=== PATIENT | male | born 1945 | race Caucasian/White ===

== ENCOUNTER 2019-08-18 11:11 | Observation (INO) | payer MEDICARE, OTHER, SELFPAY ==
[2019-08-18] VITALS (9 sets, daily range): BP systolic 115–159; BP diastolic 54–85; PULSE 40–111; RESP 13–16; TEMP 35.9–36.7; O2SAT 93–98; BMI 20.7
--- NOTE | 2019-08-18 11:34 | XRR_ITS ---
PROCEDURE INFORMATION: Exam: XR Chest, 1 View Exam date and time: 08/18/2019 11:47 AM Age: 74 years old Clinical indication: Chest pain; Additional info: Bradycardia TECHNIQUE: Imaging protocol: XR of the chest Views: 1 view. COMPARISON: No relevant prior studies available. FINDINGS: Lungs: Unremarkable. No consolidation. Pleural space: Unremarkable. No pleural effusion. No pneumothorax. Heart/Mediastinum: Unremarkable. No cardiomegaly. Bones/joints: Unremarkable. XR/XR chest 1V portable [id number] IMPRESSION: No acute findings.
--- NOTE | 2019-08-18 11:34 | CT_ITS ---
WS: [id number] CT CHEST ANGIOGRAPHY WITH REFORMATS HISTORY: bradycardia TECHNIQUE: Contiguous axial images are obtained through the chest during arterial injection of intrav enous contrast. Images are reconstructed to evaluate the pulmonary arteries. MIP imaging also reviewe d. All CT scans at [facility] use at least one of these dose optimization techniques: aut omated exposure control; mA and/or kV adjustment per patient size (includes targeted exams where dose is matched to clinical indication); or iterative reconstruction. CONTRAST: Omnipaque 300; 95 mL IV. DLP: 462.55 mGy.cm COMPARISON: None available. Excellent opacification of the pulmonary arteries. No pulmonary embolism. Pulmonary artery size is no rmal. Mild atherosclerosis of aorta. There is mild ectasia of aorta. No pericardial or pleural effusi on. Severe emphysema. There are a few scattered granulomata. No pneumonia or mass. Indeterminate medi astinal and hilar lymph nodes. Could very well be reactive. Lymph nodes measure up to 10 mm at the hi lar regions. Small hiatal hernia. Visualized soft tissues of the upper abdomen are negative without enhancement. Moderate increase in thoracic kyphosis. RIGHT convex curvature of the thoracic spine. Prior rotator c uff repair on the LEFT. No osteoblastic or osteolytic bone disease. CT/CT angio chest PE protcl [id number] IMPRESSION: 1. No pulmonary embolism. 2. Severe chronic emphysema with no pneumonia. 3. Indeterminate mediastinal and hilar lymph nodes.
--- NOTE | 2019-08-18 11:35 | ECG_ITS ---
Measurements Intervals [place] Rate: 39 P: 76 NE: 229 QRS: 64 QRSD: 129 T: 69 QT: 462 QTc: 375 SINUS BRADYCARDIA WITH FIRST DEGREE AV BLOCK MODERATE INTRAVENTRICULAR CONDUCTION DELAY [110+ ms QRS DURATION] Compared to ECG 06/04/2018 11:29:40 No significant changes Electronically Signed On 08-18-2019 21:58:19 CDT by Elaina Tafoya M.D. [id number]
--- NOTE | 2019-08-18 11:47 | ED_ITS ---
HPI - Dizziness General: Chief Complaint: Dizziness Stated Complaint: low heart rate/sent by doc Time Seen by Provider: 08/18/19 11:26 History of Present Illness: HPI Narrative: Patient states that yesterday while using the weed eater he became lightheaded and dizzy and had one episode of emesis. Patient was in August using a weed eater today and again became very lightheaded and dizzy. Was no vomiting today. Patient went to his PCPs office and was sent to the ER when it was discovered that he has a first degree AV block. Patient's EKG doesn't fact reveal a first degree A-V block but I do not believe this is the etiology of the patient's bradycardia. MD elicited complaint: dizziness Onset (ago): day(s) Timing: sudden onset and constant Severity: severe Description: lightheadedness, difficulty walking and near-syncope Context: exertion History of similar symptoms: No Exacerbating factors: movement/ambulation Relieving factors: medication Associated symptoms: Reports no associated symptoms and palpitations Associated neuro symptoms: Reports no associated symptoms Review of Systems General: Reports: 10 or more systems reviewed and unremarkable except in HPI and below Card: Reports: palpitations, lightheadedness and dyspnea on exertion Neuro: Reports: dizziness PFS ED PFSH: Medical History (Updated 08/18/19 @ 15:16 by Eliseo Grewal MD) COPD (chronic obstructive pulmonary disease) Tobacco dependency Surgical History H/O hernia repair H/O shoulder surgery History of appendectomy Family History (Updated 08/18/19 @ 15:10 by Eliseo Grewal MD) Other Cancer Social History Smoking and tobacco status: current every day smoker Physical Exam HENMT: COMMON NORMALS: normocephalic HEAD & SCALP: normocephalic Neck/C-Spine: COMMON NORMALS: full ROM, no meningeal signs and no JVD Resp: COMMON NORMALS: normal respiratory effort, No retractions, No use of accessory muscles and clear to auscultation bilaterally AUSCULTATION: clear to auscultation bilaterally Cardio: COMMON NORMALS: no JVD and regular rhythm RATE: bradycardic (1st degree av block with marked bradycardia) RHYTHM: regular rhythm GI: COMMON NORMALS: Normal to inspection, nondistended, normoactive bowel sounds present Extremity: COMMON NORMALS: normal to inspection Neuro: MENINGEAL SIGNS: Yes no meningeal signs Course Vital Signs: Vital signs: Vital Signs Temperature 97.5 F L 08/18/19 11:18 Pulse Rate 45 L 08/18/19 11:18 Respiratory Rate 16 08/18/19 11:18 Blood Pressure 141/70 08/18/19 11:18 Pulse Oximetry 97 08/18/19 11:18 MDM - Dizziness Lab Data: Labs: Lab Results 08/18/19 08/18/19 08/18/19 Range/Units 11:59 11:59 11:59 WBC 6.5 (4.0-10.0) 10^3/ uL RBC 4.65 (4.1-5.3) 10^6/u L Hgb 14.2 (11.7-16.6) g/dL Hct 44.5 (42.0-52.0) % MCV 95.7 H (80-94) fL MCH 30.5 (28.0-34.0) pg MCHC 31.9 (30.0-36.0) g/dL RDW 13.2 (12.1-15.1) % Plt Count 229 (130-400) 10^3/c mm MPV 8.8 (7.4-10.4) fL Neut % (Auto) 56.7 % Lymph % (Auto) 30.7 % [place] % (Auto) 7.9 % Eos % (Auto) 3.6 % Baso % (Auto) 0.9 % Neut # (Auto) 3.7 (1.8-7.7) 10^3/u L Lymph # (Auto) 2.0 (0.8-4.8) 10^3/u L [place] # (Auto) 0.5 (0.2-0.9) 10^3/u L Eos # (Auto) 0.2 (0.0-0.8) 10^3/u L Baso # (Auto) 0.1 (0.0-0.1) 10^3/u L Nucleated RBC % (a uto) 0 % Nucleated RBCs # 0.0 /100WBC PT 13.10 (10.5-13.3) SECO NDS INR 0.97 (0.8-1.2) Sodium 140 (136-145) mmol/L Potassium 4.1 (3.5-5.1) mmol/L Chloride 104 (98-107) mmol/L Carbon Dioxide 28 (22-29) mmol/L Anion Gap 12.1 (5-19) BUN 8 (8-23) mg/dL Creatinine 0.9 (0.7-1.2) mg/dL Glucose 98 (65-115) mg/dL Calculated Osmolal ity 286 (285-295) mOsm/k g Lactate (0.5-2.2) mmol/L Calcium 9.0 (8.5-10.5) mg/dL Phosphorus 3.3 (2.5-4.5) mg/dL Magnesium 2.2 (1.7-2.3) mg/dL Total Bilirubin 0.2 (0.15-1.2) mg/dL AST 14 (0-40) U/L ALT 9 (0-41) U/L Alkaline Phosphata se 62 (40-130) IU/L Troponin T Baselin e (0-15) ng/mL Troponin T 120 Min [place] (0-15) ng/mL Delta Troponin T (0-10) ABS# NT-Pro-B Natriuret Pep 63 (0-125) pg/mL Total Protein 6.5 L (6.6-8.7) g/dL Albumin 4.0 (3.5-5.2) g/dL Globulin 2.5 (1.3-4.6) g/dL TSH 2.37 (0.27-4.20) uIU/ mL 08/18/19 08/18/19 08/18/19 Range/Units 11:59 11:59 13:58 WBC (4.0-10.0) 10^3/ uL RBC (4.1-5.3) 10^6/u L Hgb (11.7-16.6) g/dL Hct (42.0-52.0) % MCV (80-94) fL MCH (28.0-34.0) pg MCHC (30.0-36.0) g/dL RDW (12.1-15.1) % Plt Count (130-400) 10^3/c mm MPV (7.4-10.4) fL Neut % (Auto) % Lymph % (Auto) % [place] % (Auto) % Eos % (Auto) % Baso % (Auto) % Neut # (Auto) (1.8-7.7) 10^3/u L Lymph # (Auto) (0.8-4.8) 10^3/u L [place] # (Auto) (0.2-0.9) 10^3/u L Eos # (Auto) (0.0-0.8) 10^3/u L Baso # (Auto) (0.0-0.1) 10^3/u L Nucleated RBC % (a uto) % Nucleated RBCs # /100WBC PT (10.5-13.3) SECO NDS INR (0.8-1.2) Sodium (136-145) mmol/L Potassium (3.5-5.1) mmol/L Chloride (98-107) mmol/L Carbon Dioxide (22-29) mmol/L Anion Gap (5-19) BUN (8-23) mg/dL Creatinine (0.7-1.2) mg/dL Glucose (65-115) mg/dL Calculated Osmolal ity (285-295) mOsm/k g Lactate 0.9 (0.5-2.2) mmol/L Calcium (8.5-10.5) mg/dL Phosphorus (2.5-4.5) mg/dL Magnesium (1.7-2.3) mg/dL Total Bilirubin (0.15-1.2) mg/dL AST (0-40) U/L ALT (0-41) U/L Alkaline Phosphata se (40-130) IU/L Troponin T Baselin e 12 (0-15) ng/mL Troponin T 120 Min [place] 11.32 (0-15) ng/mL Delta Troponin T -0.68 L (0-10) ABS# NT-Pro-B Natriuret Pep (0-125) pg/mL Total Protein (6.6-8.7) g/dL Albumin (3.5-5.2) g/dL Globulin (1.3-4.6) g/dL TSH (0.27-4.20) uIU/ mL Discharge Plan Discharge Patient Disposition: Admitted As Inpatient Clinical Impression: Vertigo, Bradycardia Condition: Fair Referrals: Rich Lomeli [Primary Care Provider] - Coding Level of Care Code ED [employer] for Chg Fwd Exam Detailed
[2019-08-18 12:06] LABS: Basophils # 0.1 10^3/uL (0.0-0.1); Basophils % 0.9 %; Eosinophils # 0.2 10^3/uL (0.0-0.8); Eosinophils % 3.6 %; Hematocrit 44.5 % (42.0-52.0); Hemoglobin 14.2 g/dL (11.7-16.6); Lymphocytes % 30.7 %; Mean Corpuscular HGB Conc 31.9 g/dL (30.0-36.0); Mean Corpuscular Hemoglobin 30.5 pg (28.0-34.0); Mean Corpuscular Volume 95.7 fL (80-94); Mean Platelet Volume 8.8 fL (7.4-10.4); Monocytes # 0.5 10^3/uL (0.2-0.9); Monocytes % 7.9 %; Neutrophils # 3.7 10^3/uL (1.8-7.7); Neutrophils % 56.7 %; Nucleated Red Blood Cells % 0 %; Platelet Count 229 10^3/cmm (130-400); Red Blood Count 4.65 10^6/uL (4.1-5.3); Red Cell Distribution Width 13.2 % (12.1-15.1); White Blood Count 6.5 10^3/uL (4.0-10.0)
[2019-08-18 12:15] LABS: INR 0.97 (0.8-1.2)
[2019-08-18 12:30] LABS: Lactate (Lactic Acid level) 0.9 mmol/L (0.5-2.2)
[2019-08-18 12:33] LABS: Troponin(5th) Baseline 12 ng/mL (0-15)
[2019-08-18 12:44] LABS: Alanine Aminotransferase 9 U/L (0-41); Alkaline Phosphatase 62 IU/L (40-130); Anion Gap 12.1 (5-19); Aspartate Amino Transferase 14 U/L (0-40); Blood Urea Nitrogen 8 mg/dL (8-23); Carbon Dioxide 28 mmol/L (22-29); Chloride 104 mmol/L (98-107); Globulin 2.5 g/dL (1.3-4.6); Glucose 98 mg/dL (65-115); Magnesium 2.2 mg/dL (1.7-2.3); NT Pro B Type Natriuretic Pept 63 pg/mL (0-125); Osmolality Calculated 286 mOsm/kg (285-295); Phosphorus 3.3 mg/dL (2.5-4.5); Potassium 4.1 mmol/L (3.5-5.1); Sodium 140 mmol/L (136-145); Thyroid Stimulating Hormone 2.37 uIU/mL (0.27-4.20); Total Bilirubin 0.2 mg/dL (0.15-1.2); Total Protein 6.5 g/dL (6.6-8.7)
[2019-08-18] MEDS: iohexol 350 mg/mL 100 mL Btl IV (12:50)
--- NOTE | 2019-08-18 13:35 | ECG_ITS ---
Measurements Intervals [place] Rate: 41 P: 74 RI: 229 QRS: 55 QRSD: 110 T: 60 QT: 446 QTc: 370 SINUS BRADYCARDIA WITH FIRST DEGREE AV BLOCK Compared to ECG 06/04/2018 11:29:40 Intraventricular conduction delay no longer present Electronically Signed On 08-18-2019 22:11:31 CDT by Elaina Tafoya M.D. [id number]
[2019-08-18 14:20] LABS: Troponin 5 2HR 11.32 ng/mL (0-15)
[2019-08-18 14:22] LABS: Troponin 5 2HR Delta -0.68 ABS# (0-10)
--- NOTE | 2019-08-18 15:07 | CT_ITS ---
WS: [id number] CT HEAD NONCONTRAST HISTORY: vertigo TECHNIQUE: Contiguous axial imaging performed through the brain in 2.5 mm imaging. Bone and soft tiss ue windows. Sagittal and coronal reformats reviewed. All CT scans at [facility] use at le ast one of these dose optimization techniques: automated exposure control; mA and/or kV adjustment pe r patient size (includes targeted exams where dose is matched to clinical indication); or iterative r econstruction. DLP: 793.24 mGy.cm COMPARISON: None available. Increased density layering along the tentorium and within the dural venous sinuses is from a recent C T examination. Therefore cannot exclude subdural blood. There is no evidence for significant intracra nial hemorrhage. No mass effect. Mild chronic microvascular ischemic disease. Mild atrophy. Ventricles: Normal size with no hydrocephalus. Moderate atherosclerosis of the intracranial carotid arteries. Paranasal sinuses: Mild mucoperiosteal thickening in the ethmoid air cells. Mastoid air cells: Well pneumatized. Calvarium and scalp: Skull is intact with no soft tissue edema or swelling. CT/CT head wo con* [id number] IMPRESSION: 1. Contrast enhancement along the tentorium and dural venous sinuses from rece nt CT angiogram. Therefore cannot exclude small subarachnoid hemorrhages. 2. Mild atrophy with no large intracranial hemorrhage. No mass effect.
--- NOTE | 2019-08-18 15:07 | P.HP_ITS ---
Providers/Chief Complaint Primary Care Provider: Rich Lomeli Chief Complaint: low heart rate/sent by doc History of Present Illness Rich Quinonez is a 74 year old male who presents to the emergency department with complaints of some dizziness. He reports symptoms started when he was weed eating yesterday, around 9 AM. He started feeling weak, dizzy. He reports that the dizziness has persisted intermittently. He states that when he moves his head quickly, he feels as if he is falling, and gets dizzy. He does not really think that the mark move. He denies any headache. He reports he had some nausea and one episode of emesis yesterday, but denies any today. He reports no history of head injury. He has had no fever, or neck pain. He reports he came in today not because he was worse but because his wanted him to. He was sent from urgent care here secondary to bradycardia. Review of Systems General: Reports: 10 or more systems reviewed and unremarkable except in HPI and below Const: Denies: fever(s) Eyes: Denies: change in vision ENMT: Denies: throat pain Card: Denies: chest pain Resp: Denies: dyspnea GI: Reports: nausea and vomiting; Denies: abdominal pain : Denies: flank pain or difficulty urinating Musc: Denies: neck pain Skin/Breast: Denies: rash Neuro: Reports: dizziness and vertigo; Denies: headache(s) Psych: Denies: anxiety or depression Endo: Denies: polyuria Saleem/Lymph: Denies: easy bruising All/Imm: Denies: urticaria Medications/Allergies Home Medications Medication Instructions Recorded Confirmed Last Taken Type krill oil 1 cap PO DAILY 08/18/19 08/18/19 08/15/19 History multivitamin [Multiple Vitamins] 1 tab PO DAILY 08/18/19 08/18/19 08/15/19 History Allergies Allergy/AdvReac Type Severity Reaction Status Date / Time No Known Allergies Allergy Verified 08/18/19 09:44 PFSH Acute PFSH: Medical History (Updated 08/18/19 @ 15:16 by Eliseo Grewal MD) COPD (chronic obstructive pulmonary disease) Tobacco dependency Surgical History H/O hernia repair H/O shoulder surgery History of appendectomy Family History (Updated 08/18/19 @ 15:10 by Eliseo Grewal MD) Other Cancer Social History Smoking and tobacco status: current every day smoker Vitals/I&O/Wt Last Vital Signs Temp 97.5 F L 08/18/19 11:18 Pulse 45 L 08/18/19 11:18 Resp 16 08/18/19 11:18 BP 141/70 08/18/19 11:18 Pulse Ox 97 08/18/19 11:18 Weight last 48 hrs Weight 59.874 kg Physical Exam Narrative: EXAM NARRATIVE: General exam is a white male, no apparent distress. HEENT: Pupils equally round. Oropharynx is clear. TMs normal bilaterally. Small amount of cerumen bilateral left greater than right. Oropharynx clear. Neck is supple no lymphadenopathy or thyromegaly Cardiovascular regular rate and rhythm without murmur, no S3 or S4 Lungs clear no wheezing or crackles Back kyphoscoliosis noted Abdomen is soft nontender with positive bowel sounds. No obvious organomegaly was deferred Extremities no cyanosis clubbing or edema, cap refill brisk. Skin no rash Neuro no obvious focal deficits, cerebellar function intact. Gait was not tested. I could not generate the patient's dizziness with position changes during my exam, nor was he having any dizziness at all. Data : 08/18/19 11:59 08/18/19 11:59 Other data: EKG demonstrates sinus bradycardia, normal axis, heart rate of 39 on initial EKG, 41 on follow-up. TX interval is 229 indicating first-degree AV block Troponin essentially normal. LFTs normal. TSH normal. CTA of chest demonstrated COPD, indeterminate lymph nodes, no pulmonary embolism. A&P Assessment and plan (1) Bradycardia: Significant bradycardia on arrival, with complaints of dizziness. However on further history dizziness seems to occur when he turns his head quickly, changes positions quickly. He has a first-degree AV block. It is likely, that his bradycardia which appears chronic according to clinic records with previous heart rates in the 50s may be worsened by labyrinthitis. However, this warrants close observation overnight for telemetry and further work-up. At this point I doubt a pacemaker will be warranted. Orthostatic blood pressures will also be obtained. Continue troponin series that has been obtained TSH was checked and normal Will initiate aspirin. Status: Acute (2) Vertigo: Likely secondary to labyrinthitis, or benign positional vertigo. No significant headache. Symptoms of nausea and vomiting were yesterday but no recurrence today and no dizziness with the exception of that generated by fast head movements according to the patient. Secondary to dizziness will check CT of head noncontrast. Close monitoring with neurologic checks. Check orthostatic blood pressures twice daily Hydration Zofran if nausea occurs. Status: Acute Additional A&P Information COPD. No evidence of exacerbation. He reports he uses no inhalers at home. Will observe. Tobacco dependency. Discussed abstaining from tobacco. Full code Given his risk profile he only needs SCDs for DVT prophylaxis. Attestations Medical Necessity Statement*: Will need less than 2 midnight stay for evaluation and treatment of bradycardia, dizziness. Time Spent in Patient Care: Greater than 35 minutes Coding Level of Care Code Acute [employer] Curator for Bárbara Levy Diagnoses Bradycardia R00.1 Vertigo R42
--- NOTE | 2019-08-18 16:22 | USCV_ITS ---
Rich Quinonez Age: 74 Gender: M : 1945 Exam Date: 08/18/2019 16:57 Ordering Phys: Eliseo Grewal MD Technologist: Shwetha Pierce Exam Location: [facility] [place] Indication: Bradycardia BP: / HR: 39 Rhythm: Sinus Technical Quality: Adequate MEASUREMENTS (Male / Female) Normal Values 2D ECHO LV Diastolic Diameter PLAX 3.0 cm 4.2 - 5.9 / 3.9 - 5.3 cm LV Systolic Diameter PLAX 2.2 cm LV Chamber Size 3.2 cm IVS Diastolic Thickness 1.5 cm 0.6 - 1.0 / 0.6 - 0.9 cm IVS Systolic Thickness 1.4 cm LVPW Diastolic Thickness 1.6 cm 0.6 - 1.0 / 0.6 - 0.9 cm LVPW Systolic Thickness 2.3 cm RV Chamber Size 3.3 cm LVOT Diameter 2.0 cm LV Ejection Fraction 2D Teich 54.1 % LV Ejection Fraction MOD 2C 62.7 % LV Ejection Fraction 2C AL 62.0 % LA Diameter 3.2 cm LA Width 3.3 cm LA Height 4.1 cm RA Width 2.8 cm RA Height 3.2 cm Aorta at Sinotubular Diameter 2.8 cm M-MODE LV Diastolic Diameter MM 4.6 cm 4.2 - 5.9 / 3.9 - 5.3 cm LV Systolic Diameter MM 3.2 cm LV Ejection Fraction MM Teich 57.8 % IVS Diastolic Thickness MM 1.1 cm 0.6 - 1.0 / 0.6 - 0.9 cm IVS Systolic Thickness MM 1.3 cm LVPW Diastolic Thickness MM 1.1 cm 0.6 - 1.0 / 0.6 - 0.9 cm LVPW Systolic Thickness MM 1.3 cm Aortic Annulus Diameter 3.3 cm LA Ao Ratio MM 1.0 MV E Point Septal Separation 2.7 cm DOPPLER AV Peak Velocity 90.0 cm/s LVOT Peak Velocity 103.0 cm/s AV Area Cont Eq vti 4.6 cm squared AV Area Cont Eq pk 3.6 cm squared MV Area PHT 3.9 cm squared Mitral E to A Ratio 1.1 MV E' Velocity 13.0 cm/s Mitral E to MV E' Ratio 6.4 Mitral E to LV E' Lateral Ratio 5.8 Mitral E to LV E' Septal Ratio 7.1 TR Peak Velocity 135.0 cm/s TR Peak Gradient 7.3 mmHg TV Peak E Velocity 51.0 cm/s Right Atrial Pressure 3.0 mmHg Pulmonary Artery Systolic Pressu 10.3 mmHg PV Peak Velocity 86.0 cm/s RV Acceleration Time 0.1 s RV Ejection Time 0.4 s RV AcT/ET 0.3 FINDINGS Left Ventricle Normal left ventricular cavity size. Normal left ventricular systolic function. Left ventricular ejection fraction is estimated at 60 %. No diagnostic regional wall motion abnormalities. Right Ventricle Right ventricle not well visualized. Probably normal right ventricular size and systolic function. Right Atrium Normal right atrial size. Right atrial pressure estimated at 3 mmHg. Left Atrium Normal left atrial size. Mitral Valve Structurally normal mitral valve. Trace mitral valve regurgitation. Aortic Valve Structurally normal trileaflet aortic valve. No aortic valve stenosis. Dgfs-pd-vytnifsz aortic valve regurgitation. Tricuspid Valve Tricuspid valve not well visualized. Trace tricuspid valve regurgitation. Pulmonic Valve Pericardium No pericardial effusion. Aorta Aorta not well visualized. CONCLUSIONS 1. Normal left ventricular cavity size and systolic function. Left ventricular ejection fraction is estimated at 60 %. No diagnostic regional wall motion abnormalities. 2. Probably normal right ventricular size and systolic function. 3. Right atrial pressure estimated at 3 mmHg. 4. Pvqu-bz-adpegxqa aortic valve regurgitation. 5. No prior similar studies to compare. Elaina Tafoya MD (Electronically Signed) Final Date: 18 Aug 2019 17:55 S
[2019-08-18] MEDS: sodium chloride 0.9% 1,000 ML 75 ML IV (16:53)
--- NOTE | 2019-08-18 17:35 | ECG_ITS ---
Measurements Intervals [place] Rate: 39 P: 71 DE: 238 QRS: 60 QRSD: 129 T: 62 QT: 457 QTc: 372 SINUS BRADYCARDIA WITH FIRST DEGREE AV BLOCK MODERATE INTRAVENTRICULAR CONDUCTION DELAY [110+ ms QRS DURATION] Compared to ECG 06/04/2018 11:29:40 No significant changes Electronically Signed On 08-18-2019 22:08:51 CDT by Elaina Tafoya M.D. [id number]
--- NOTE | 2019-08-18 18:45 | PC.NURSE ---
Assumed care of patient
[2019-08-18 18:54] LABS: Add Urine Microscopic? NO
--- NOTE | 2019-08-18 19:25 | PC.NURSE ---
Assumed care of patient at this time. Patient up to chair watching tv. Patient denies any pain or discomforts. No distress observed. Discussed plan of the evening. Patient verbalized understanding.
[2019-08-18 19:55] LABS: Bilirubin Urine Neg (NEGATIVE); Blood Urine Neg (Negative); Glucose Urine UA Norm (Normal); Ketones Urine Negative (Negative); Leukocyte Esterase Urine Negative (Negative); Nitrate Urine Negative (Negative); Protein Urine Neg (Negative); Urine Appearance Clear (CLEAR); Urine Color Yellow (Yellow); Urobilinogen Urine Norm (Negative); pH Urine 5 (5-7)
--- NOTE | 2019-08-18 21:05 | PM.EVENT ---
Event Note Event Note: Lab called for abnormal troponin of 300 I immediately interviewed the patient he was sitting comfortably without any chest pain watching television, heart rate 49, systolic blood pressure 130 Sinus bradycardia EKG without any ischemic changes I would go ahead and start ACS protocol, get Lexiscan stress test to rule out coronary ischemia which could be the cause of bradycardia as patient's home meds do not include any AV katia blocking agent
[2019-08-18] MEDS: atorvastatin 40 mg Tablet 80 MG PO (21:58)
[2019-08-18] MEDS: clopidogrel 300 mg Tablet PO (21:59)
[2019-08-18] MEDS: enoxaparin 60 mg/0.6 mL Syringe SUBCUT (21:59)
--- NOTE | 2019-08-18 22:04 | PC.NURSE ---
Patient very thin and reports having lost weight due to having improper fitting dentures. Discussed soft high protein foods and patient verbalized understanding. Patient has been trying to schedule a dentist appointment to have adjustments made to his dentures but reports since this pandemic he has not been able to get in to see anybody.
[2019-08-19] VITALS (7 sets, daily range): BP systolic 106–112; BP diastolic 48–68; PULSE 46–61; RESP 15–18; TEMP 36.4–37.1; O2SAT 93–99
[2019-08-19] MEDS: sodium chloride 0.9% 1,000 ML 75 ML IV (04:23)
[2019-08-19 04:46] LABS: Basophils # 0.1 10^3/uL (0.0-0.1); Basophils % 0.7 %; Eosinophils # 0.3 10^3/uL (0.0-0.8); Eosinophils % 3.9 %; Hematocrit 38.8 % (42.0-52.0); Hemoglobin 12.7 g/dL (11.7-16.6); Lymphocytes # 2.8 10^3/uL (0.8-4.8); Lymphocytes % 40.3 %; Mean Corpuscular HGB Conc 32.7 g/dL (30.0-36.0); Mean Corpuscular Hemoglobin 31.1 pg (28.0-34.0); Mean Corpuscular Volume 94.9 fL (80-94); Mean Platelet Volume 9.3 fL (7.4-10.4); Monocytes # 0.6 10^3/uL (0.2-0.9); Monocytes % 8.5 %; Neutrophils # 3.2 10^3/uL (1.8-7.7); Neutrophils % 46.5 %; Nucleated Red Blood Cells % 0 %; Platelet Count 208 10^3/cmm (130-400); Red Blood Count 4.09 10^6/uL (4.1-5.3); Red Cell Distribution Width 13.2 % (12.1-15.1); White Blood Count 6.9 10^3/uL (4.0-10.0)
[2019-08-19 05:03] LABS: Anion Gap 11.7 (5-19); Blood Urea Nitrogen 9 mg/dL (8-23); Calcium 9.1 mg/dL (8.5-10.5); Carbon Dioxide 24 mmol/L (22-29); Chloride 108 mmol/L (98-107); Glucose 89 mg/dL (65-115); Osmolality Calculated 285 mOsm/kg (285-295); Potassium 3.7 mmol/L (3.5-5.1); Sodium 140 mmol/L (136-145)
--- NOTE | 2019-08-19 06:00 | ECG_ITS ---
NAME OF STUDY: LEXISCAN SESTAMIBI STRESS TEST INDICATION: New Onset Bradycardia RESULTS TO JEWELS GRANDE MD LEXISCAN STRESS TEST ORDERING PHYSICIAN: Uri CLINICAL INFORMATION: Elevated troponin INTERPRETATION: 1. The patient was brought to the laboratory where Lexiscan was infused over 20 seconds. The resting blood pressure was 130/67. Maximum blood pressure was 140/67. The resting heart rate was 50 beats per minute. The maximum heart rate is 79 beats per minute. 2. The baseline electrocardiogram reveals sinus bradycardia but otherwise a normal tracing 3. With Lexiscan infusion, there were no ST segment changes to suggest ischemia. 4. The patient experienced no symptoms or arrhythmias during the examination. CONCLUSION: 1. Unremarkable Lexiscan infusion. 2. Nuclear imaging to follow. Electronically Signed On 08-19-2019 11:58:59 CDT by Cordell Valerio M.D. [id number]
--- NOTE | 2019-08-19 07:00 | NMCV_ITS ---
NM nimesh perf SPECT r/s* [id number] Rich Quinonez Age: 74 Gender: M : 1945 Exam Date: 08/19/2019 07:12 Ordering Phys: Pamela Ingram MD Technologist: YURY Christiansen Exam Location: [facility] Indications: Bradycardia STRESS TEST Please see separate stress test report in [facility] for full findings IMAGE PROTOCOL Rest/Stress 1 Lexiscan Day Radiopharmaceutical Dose (mCi) Administration Site Administered by Rest: Tc-99m 10.8 IV YURY Nesbitt Sestamibi Stress:Tc-99m 32.6 IV YURY Christiansen Sestamiamanda Rest: 19-Aug-2019 60 Discovery 630 Stress: 19-Aug-2019 45 Discovery 630 0.4mg Lexiscan. Images obtained in supine and prone position. SPECT RESULTS Technical Quality: Good Raw Data Analysis: Normal Image Corrections: No attenuation or motion correction applied Summed Stress Score: 0 Summed Rest Score: 7 Summed Difference Score: 0 PERFUSION FINDINGS Small area of fixed perfusion defect noted in the apex of the left ventricle suggestive of apical thinning artifact. Large area of decreased tracer uptake noted in basal to distal inferior and inferoseptal and inferolateral wall on the rest images which improved on stress images suggestive of artifact. FUNCTIONAL RESULTS (calculated via Gated SPECT) Stress Image LV EF (%): 50 Stress EDV (mL):104 TID: 1.07 Stress ESV (mL):52 Rest Image LV EF (%): 50 FUNCTIONAL FINDINGS: There is normal left ventricular systolic function. IMPRESSIONS This study is negative for ischemia low probability for obstructive coronary artery disease. EKG segment will be documented separately. Pamela Lema MD (Electronically Signed) Final Date: 19 Aug 2019 14:16 S
--- NOTE | 2019-08-19 08:00 | SUR.PREOP ---
Patient reports no pain or discomfort prior to the start of the procedure.
[2019-08-19] MEDS: regadenoson 0.4 Mg/5 ml Syringe IVP (08:25)
[2019-08-19] MEDS: aspirin 81 mg EC Tablet PO (09:44)
[2019-08-19] MEDS: aspirin 325 mg EC Tablet PO (09:44)
[2019-08-19] MEDS: clopidogrel 75 mg Tablet PO (09:44)
[2019-08-19] MEDS: enoxaparin 60 mg/0.6 mL Syringe SUBCUT (09:45)
--- NOTE | 2019-08-19 09:53 | PM.PN ---
Subjective Subjective: Interval history: Events of last night noted. Hospitalist was called secondary to third troponin being 300. Initial troponins were not significantly elevated at all. Patient himself reports he feels fine, without dizziness when he ambulates without any chest discomfort and without any nausea. Telemetry last night indicated some sinus bradycardia, with rates in the lower 40s. Patient reports his heart rate is always low but not quite this low. Medications: Reviewed: Yes Vitals/I&O/Wt Last Vital Signs Temp 97.9 F 08/19/19 07:18 Pulse 61 08/19/19 08:32 Resp 18 08/19/19 07:18 BP 106/62 08/19/19 08:32 Pulse Ox 96 08/19/19 07:18 08/18/19 08/19/19 08/19/19 22:59 06:59 14:59 Intake Total 240 / 240 1222.5 / 1462.5 960 / 960 Output Total 1060 / 1060 500 / 500 Balance -820 / -820 1222.5 / 402.5 460 / 460 Weight last 48 hrs Weight 59.874 kg Physical Exam Narrative: EXAM NARRATIVE: General exam is no apparent distress Cardiovascular regular rate and rhythm, no murmur. Heart rate currently 61 Lungs clear no wheezing or crackles Abdomen is soft, positive bowel sounds Extremities no cyanosis clubbing or edema Neuro no obvious focal deficits. Data : 08/19/19 04:20 08/19/19 04:20 A&P Assessment and plan (1) Bradycardia: Significant bradycardia on arrival, with complaints of dizziness. However on further history dizziness seems to occur when he turns his head quickly, changes positions quickly. He has a first-degree AV block. It is likely, that his bradycardia which appears chronic according to clinic records with previous heart rates in the 50s may be worsened by labyrinthitis. He is asymptomatic this morning. No high degree heart blocks are noted. His third troponin is positive. My first concern with this is it might be a lab error considering his first 2. Repeat currently. He has been placed on Plavix, Lovenox, statin. Will await nuclear stress test and repeat troponin before addressing whether these medicines are still warranted. Orthostatic blood pressures were checked yesterday and he was not found to be orthostatic. TSH was normal I will have cardiology see him. He will need cardiology follow-up, and likely an event monitor upon discharge. Status: Acute (2) Vertigo: Likely secondary to labyrinthitis, or benign positional vertigo. No significant headache. Symptoms of nausea and vomiting were yesterday but no recurrence today and no dizziness with the exception of that generated by fast head movements according to the patient. CT of head was normal. Orthostatic blood pressures were normal. Symptoms have resolved. Status: Acute Additional A&P Information COPD. No evidence of exacerbation. He reports he uses no inhalers at home. Will observe. Tobacco dependency. Discussed abstaining from tobacco. Full code Given his risk profile he only needs SCDs for DVT prophylaxis. Attestations Medical Necessity Statement*: Possible discharge today after diagnostic testing Coding Level of Care Code Acute History Instructor for Bárbara Levy Diagnoses Bradycardia R00.1 Vertigo R42
--- NOTE | 2019-08-19 10:16 | PC.CHAP ---
Pastoral Care Encounter/Spiritual Assessment Type of Contact [] Declined patient's librarian visit [] Patient/Family/Request visit [] Outpatient visit [] Follow-up visit [] Physician referral [] Code/Alert [x] Routine visit [] Staff referral [] Actively dying [] Patient sleeping [] Family support [] [x] Out of room [] Palliative care [] [] Receiving care in room [] Pre-surgical visit [] Trauma [] Long length of stay [] ICU visit [x] Other:Testing Relational/Emotional Strength [] Patient feels connected with others/family/visitors/staff [] Distress [] Loneliness/isolation [] Abandonment Spirituality of Patient [] Person of [place] [] Attends Hinduism of their [place] [] Believes in Prayer [] Reads Bible or Buddhism materials [] There are Spiritual issues to be addressed Hotel Maintenance Worker Interventions [] Prayer [] Active listening [] Non-anxious presence [] Spiritual/emotional support [] Crisis/trauma care [] Spiritual counseling [] Bereavement support [] Provided bereavement packet [] Provided Bible/devotional materials [] Provided toy/stuffed animal, coloring book to patient or family member [] Provided Communion [] Anointing/[place] [] Salvation [x] Completed spiritual assessment [] Other: Impact on Illness or Injury [] Angry [] Fearful [] Anxious [] Often cries [] Exhaustion [] Unable to work [] Unable to attend buddhist [] Unable to walk/stand [] Unable to read [] Unable to drive [] Unable to eat/drink [] Unable to sleep [] Unable to be with family [] Patient intubated [] Other: Summary Time spent with patient
--- NOTE | 2019-08-19 10:35 | PM.CONSULT ---
Providers/Reason For Consult Consulting Physican/Specialty*: Cardiovascular medicine Reason for Consult*: Bradycardia, elevated troponin Attending Physician: Eliseo Grewal MD Primary Care Provider: Rich Lomeli History of Present Illness History of Present Illness Rich Quinonez is a 74 year old male who came in yesterday for dizziness. He was encouraged by his to go to a local clinic. He did this and they noticed that he was bradycardia. He was then sent to the emergency room and admitted. When one looks at his chart he is bradycardic most of the time. He runs a heart rate in the 50s. He has not been hypotensive. He has no other symptoms. He does not have chest pain. His heart rates have been from a low of 42 to a high of 61. It does not change with sitting or standing. His blood pressures have been from a low of 100/64 to a high of 159/71. He is not orthostatic however. His first true to troponins were 12 and 11. Unexpectedly, the third 1 came back at 300. Once again the patient has no chest pain. CT of his head was negative. Chest CT was negative. Echo shows a normal ejection fraction with mild to moderate aortic insufficiency. His EKG shows sinus bradycardia and otherwise is normal. Review of Systems General: Reports: 10 or more systems reviewed and unremarkable except in HPI and below Meds/Allergies Home Medications and Allergies Home Medications Medication Instructions Recorded Confirmed Last Taken Type krill oil 1 cap PO DAILY 08/18/19 08/18/19 08/15/19 History multivitamin [Multiple Vitamins] 1 tab PO DAILY 08/18/19 08/18/19 08/15/19 History Allergies Allergy/AdvReac Type Severity Reaction Status Date / Time No Known Allergies Allergy Verified 08/18/19 09:44 Current Medications Current Medications Generic Name Dose Route Start Last Admin Trade Name Freq PRN Reason Stop Dose Admin Aspirin 325 mg 08/19/19 09:00 08/19/19 09:44 Aspirin Ec PO 325 mg DAILY EILEEN Administration Atorvastatin Calcium 80 mg 08/18/19 21:00 08/18/19 21:58 Lipitor PO 80 mg BEDTIME EILEEN Administration Clopidogrel Bisulfate 75 mg 08/19/19 09:00 08/19/19 09:44 Plavix PO 75 mg DAILY EILEEN Administration Enoxaparin Sodium 60 mg 08/18/19 21:00 08/19/19 09:45 Lovenox SUBCUT 60 mg Q12H EILEEN Administration Sodium Chloride 1,000 mls @ 75 mls/hr 08/18/19 16:22 08/19/19 04:23 Sodium Chloride 0.9% IV 75 mls/hr .[id number] EILEEN Administration PFSH Acute PFSH: Medical History (Updated 08/18/19 @ 15:16 by Eliseo Grewal MD) COPD (chronic obstructive pulmonary disease) Tobacco dependency Surgical History H/O hernia repair H/O shoulder surgery History of appendectomy Family History (Updated 08/18/19 @ 15:10 by Eliseo Grewal MD) Other Cancer Social History Smoking and tobacco status: current every day smoker Vitals/I&O/Wt Last Vital Signs Temp 97.9 F 08/19/19 07:18 Pulse 61 08/19/19 08:32 Resp 18 08/19/19 07:18 BP 106/62 08/19/19 08:32 Pulse Ox 96 08/19/19 07:18 08/18/19 08/19/19 08/19/19 22:59 06:59 14:59 Intake Total 240 / 240 1222.5 / 1462.5 960 / 960 Output Total 1060 / 1060 500 / 500 Balance -820 / -820 1222.5 / 402.5 460 / 460 Weight last 48 hrs Weight 132 lb Physical Exam Narrative: EXAM NARRATIVE: GENERAL: In general he looks and feels well, wonders what all the fuss is about HEENT: Exam within normal limits. NECK: Supple without jugular vein distention. The carotid upstroke is normal without bruits. BACK: Exam normal. LUNGS: Clear. HEART: Regular rate and rhythm. ABDOMEN: Benign without organomegaly or tenderness. EXTREMITIES: No edema. NEUROLOGIC: Exam normal. SKIN: Unremarkable. Data Other Data: Other data: Troponins 12, 11 and 300. Echo normal EF with mild to moderate aortic insufficiency. EKG reveals sinus bradycardia rate 56 but otherwise normal. CTs of the head and chest are negative. A&P Assessment and plan (1) Vertigo: Status: Acute (2) Bradycardia: Status: Acute (3) Tobacco dependency: Status: Acute Additional A&P Information I do not think any of his symptoms of dizziness are otherwise a related to the bradycardia. He is chronically bradycardic and his blood pressure is normal in the meantime. I see no indication for a pacemaker. The troponin elevation is unusual and seems to be spurious. There would be no reason without EKG changes or chest pain that he should have a troponin of 300 after the first 2 were less than 15. The echo is normal and a nuclear stress test is pending for today. Once we get that information we will move forward. Consult Attestations Medical Necessity Statement: Not applicable Coding Level of Care Code New Pt Acute Mechanic And Welder for g Fwd Patient Type New History Detailed Exam Detailed Medical Decision Making Moderate Complexity Diagnoses Vertigo R42 Bradycardia R00.1 Tobacco dependency F17.200
[2019-08-19 11:11] LABS: Troponin T (5th) Once 13 ng/mL (0-15)
--- NOTE | 2019-08-19 14:45 | PM.DCS ---
Discharge Providers Date of Admission: 08/18/19 15:03 Date of Discharge: August 19, 2019 Attending Provider at Admission: Eliseo Grewal MD Attending Provider at Discharge: Eliseo Grewal MD Primary Care Provider: Rich Nataly Lomeli Diagnoses at Discharge Discharge Diagnosis (1) Vertigo: Status: Acute Problem details: Resolved (2) Bradycardia: Status: Acute Problem details: Event monitor on discharge (3) Tobacco dependency: Status: Acute Problem details: Counseled Reason for Visit Reason for Visit: Reason For Visit: low heart rate/sent by doc Hospital Course Hospital Course: Rich is a 74-year-old white male presented to the hospital with bradycardia and dizziness. His dizziness was thought to be due to vertigo. CTA chest, CT head without any acute findings. Echocardiogram with EF of 60%, mild to moderate aortic regurgitation. Troponin, third was slightly high but on repeat was normal and this was thought to be lab error. Myocardial perfusion study demonstrated no obvious reversible ischemia. During his hospital stay he had no symptomatic bradycardia, with most of his heart rates between 40-55. He was able to ambulate without dizziness. Cardiology consult was obtained, and he was sent home with orders for an event monitor and to follow-up with cardiology. Physical Exam Narrative: EXAM NARRATIVE: General exam no apparent distress Cardiovascular bradycardic, no murmur, regular Lungs clear no wheezing or crackles Abdomen is soft, positive bowel sounds Extremities no cyanosis clubbing or edema Discharge Data Data Completed and Pending: Completed Studies During Hospitalization Category Date Time Status CT angio chest PE protcl [id number] Urge nt Cat Scan 08/18/19 11:[address] head wo con* 7 [id number] Urgent Cat Scan 08/18/19 15:07 Completed Sestamibi Stress Test Request Routi ne Exams 08/19/19 06:00 Completed XR chest 1V rolando ble [id number] Urgent Exams 08/18/19 11:34 Completed NM nimesh perf SPECT r/s* [id number] Routin e Nuc Med 08/19/19 07:00 Completed CV echo complete* [id number] Urgent Ultrasound 08/18/19 16:22 Completed Labs from last 24 hours 08/19/19 08/19/19 08/19/19 10:37 04:20 04:20 WBC 6.9 RBC 4.09 L Hgb 12.7 Hct 38.8 L MCV 94.9 H MCH 31.1 MCHC 32.7 RDW 13.2 Plt Count 208 MPV 9.3 Neut % (Auto) 46.5 Lymph % (Auto) 40.3 [place] % (Auto) 8.5 Eos % (Auto) 3.9 Baso % (Auto) 0.7 Neut # (Auto) 3.2 Lymph # (Auto) 2.8 [place] # (Auto) 0.6 Eos # (Auto) 0.3 Baso # (Auto) 0.1 Nucleated RBC % (a uto) 0 Nucleated RBCs # 0.0 Sodium 140 Potassium 3.7 Chloride 108 H Carbon Dioxide 24 Anion Gap 11.7 BUN 9 Creatinine 0.8 Glucose 89 Calculated Osmolal ity 285 Calcium 9.1 Troponin I 6 Hour Troponin I Hi Sens Del Troponin T Gen 5 n g/L 13 Urine Color Urine Appearance Urine pH Ur Specific Gravit y Urine Protein Urine Glucose (UA) Urine Ketones Urine Blood Urine Nitrate Urine Bilirubin Urine Urobilinogen Ur Leukocyte Jimena ase 08/18/19 08/18/19 18:05 17:30 WBC RBC Hgb Hct MCV MCH MCHC RDW Plt Count MPV Neut % (Auto) Lymph % (Auto) [place] % (Auto) Eos % (Auto) Baso % (Auto) Neut # (Auto) Lymph # (Auto) [place] # (Auto) Eos # (Auto) Baso # (Auto) Nucleated RBC % (a uto) Nucleated RBCs # Sodium Potassium Chloride Carbon Dioxide Anion Gap BUN Creatinine Glucose Calculated Osmolal ity Calcium Troponin I 6 Hour 300.0 H Troponin I Hi Sens Del 288.0 H* Troponin T Gen 5 n g/L Urine Color Yellow Urine Appearance Clear Urine pH 5 Ur Specific Gravit y 1.010 Urine Protein Neg Urine Glucose (UA) Norm Urine Ketones Negative Urine Blood Neg Urine Nitrate Negative Urine Bilirubin Neg Urine Urobilinogen Norm Ur Leukocyte Jimena ase Negative Vitals: Last Vital Signs Temp 97.6 F 08/19/19 10:56 Pulse 50 L 08/19/19 10:56 Resp 15 08/19/19 10:56 BP 111/68 08/19/19 10:56 Pulse Ox 99 08/19/19 10:56 Discharge Plan Discharge Patient Disposition: Home, Self-Care Condition: Fair Prescriptions: New aspirin [Adult Aspirin Regimen] 81 mg tablet,delayed release (DR/EC) 81 mg PO DAILY Qty: 30 RF: 0 Continued Multiple Vitamins Tablet 1 tab PO DAILY RF: 0 krill oil 1 cap PO DAILY RF: 0 Discharge Orders: Discharge Order (Routine); Ordered 08/19/19 Ordered By: Eliseo Grewal Other Ambulatory Orders: [place] cardiac event monitor (Routine) Timeframe: 1 Day Facility: [facility] - Location: Cardiac Diagnostic Laboratory Ordered By: Eliseo Grewal Referrals: Cordell Valerio MD [Physician] - 2 weeks Rich Lomeli [Primary Care Provider] - 4-7 days Discharge Diet: Regular Discharge Activity: Increase activity as tolerated Activity Restrictions/Additional Instructions: Event monitor on discharge. Follow-up with cardiology 2 weeks. Follow-up with primary care provider. Return for any problems. Stop smoking Discharge Attestations Time Spent in Discharge Care*: greater than 30 min Quality Metrics Clinical Quality Measures During this hospital stay, did patient experience: None Coding Level of Care Code Acute Rn Progressive Care for [place]ali[place] Fwd Diagnoses Vertigo R42 Bradycardia R00.1 Tobacco dependency F17.200
== END 2019-08-19 15:32 | disposition home or self-care (01) ==
LOC: ER 15:16 → CSU 15:57
PROVIDERS: Family Medicine; Admitting Provider Internal Medicine; Family Provider Family Medicine; PCP Family Medicine; Visit Provider Internal Medicine
DX: R00.1 Bradycardia, unspecified (principal); R42 Dizziness and giddiness; F17.210 Nicotine dependence, cigarettes, uncomplicated; J44.9 Chronic obstructive pulmonary disease, unspecified; Z79.02 Long term (current) use of antithrombotics/antiplatelets
CPT/HCPCS: 12345; 36415; 70450; 71045; 71275; 78452; 80048; 80053; 81003; 83605; 83735; 83880; 84100; 84443; 84484; 85025; 85610; 93005; 93017; 93306; 96372; 99283; 99285; A9500; G0378; J1650; J2785; J7030; Q9967

== ENCOUNTER → 2020-04-25 08:48 | Outpatient (BNVA) | payer MEDICARE, OTHER, SELFPAY | PROVIDERS: Family Provider Family Medicine; PCP Family Medicine; Visit Provider Nurse Practitioner Family | DX: Z20.828 Contact with and (suspected) exposure to other viral communicable diseases (principal) | CPT/HCPCS: 87635 ==

== ENCOUNTER 2020-07-06 11:39 | Outpatient (CLI) | payer MEDICARE, OTHER, SELFPAY ==
--- NOTE | 2020-07-06 11:58 | XR_ITS ---
WS: [id number] Chest 2 views, 07/06/2020 Clinical Data: R05 - Cough Comparison: Portable chest, 08/18/2019. Findings: No nodules, masses or effusions are seen. The heart is normal. The pulmonary vascularity is not increased. No pneumonia or pneumothorax is seen. The diaphragms are flattened. The aortic arch a nd descending aorta show minimal calcification and tortuosity. There is a dextroscoliosis of the lowe r thoracic spine. XR/XR chest 2V* [id number] Impression: Atherosclerosis and hyperinflation.
[2020-07-06 12:02] LABS: Basophils # 0.1 10^3/uL (0.0-0.1); Basophils % 0.8 %; Eosinophils # 0.2 10^3/uL (0.0-0.8); Hematocrit 42.5 % (42.0-52.0); Lymphocytes # 1.7 10^3/uL (0.8-4.8); Lymphocytes % 21.2 %; Mean Corpuscular HGB Conc 32.9 g/dL (30.0-36.0); Mean Corpuscular Hemoglobin 31.3 pg (28.0-34.0); Mean Corpuscular Volume 95.1 fL (80-94); Mean Platelet Volume 8.5 fL (7.4-10.4); Monocytes # 0.7 10^3/uL (0.2-0.9); Monocytes % 8.7 %; Neutrophils # 5.25 10^3/uL (1.8-7.7); Neutrophils % 66.9 %; Nucleated Red Blood Cells % 0 %; Platelet Count 282 10^3/cmm (130-400); Red Blood Count 4.47 10^6/uL (4.1-5.3); Red Cell Distribution Width 13.5 % (12.1-15.1); White Blood Count 7.8 10^3/uL (4.0-10.0)
== END 2020-07-06 11:40 | disposition home or self-care (01) ==
LOC: LAB 11:48
PROVIDERS: PCP Family Medicine; Visit Provider Nurse Practitioner Family
DX: R05 Cough (principal); I70.90 Unspecified atherosclerosis
CPT/HCPCS: 36415; 71046; 85025

== ENCOUNTER 2020-12-14 12:50 | Outpatient (CLI) | payer MEDICARE, OTHER, SELFPAY ==
--- NOTE | 2020-12-14 12:45 | USCV_ITS ---
HerbertRich sawyer Age: 75 Gender: M : 1945 Exam Date: 12/14/2020 13:16 Ordering Phys: Brenna Sheppard Technologist: CATE Exam Location: [facility] [place] Indication: dizziness and giddiness Risk Factors: Previous Vascular Surgery: Right Brachial BP: / Left Brachial BP: / Right Left Velocity (cm/s) Spectral Plaque Velocity (cm/s) Spectral Plaque Syst/Diast Broadening Syst/Diast Broadening 142.20/26.50 Prox CCA 135.60/ 17.60 97.00/ 23.20 Mid CCA 121.30/ 18.70 94.80/ 18.70 Distal CCA 83.80 / 18.70 104.20/19.70 Prox ICA 114.50/ 20.50 108.50/32.50 Mid ICA 89.70 / 23.90 84.70/ 22.90 Distal ICA 108.50/ 28.20 72.30 ECA 84.70 1.12 ICA/CCA 0.74 Antegrade Vertebral Retrograde 100.3/ 11.00 cm/s 91.40/ 1.70 cm/s 0 Tri Subclavian Owsley 106.9 80.30 0 CONCLUSIONS Right ICA stenosis <50%. Mild atheromatous plaque right carotid bulb/ICA. Left ICA stenosis <50%. Mild atheromatous plaque left carotid bulb/ICA. Normal antegrade Doppler flow noted in the right vertebral artery. Retrograde Doppler flow noted in the left vertebral artery with monophasic subclavian waveform suggesting subclavian steal Akbar Anderson MD (Electronically Signed) Final Date: 14 December 2020 14:05 S
--- NOTE | 2020-12-14 13:34 | XR_ITS ---
WS: [id number] CERVICAL SPINE TECHNIQUE: 3 views of the cervical spine CLINICAL INFORMATION: M54.2 - Cervicalgia COMPARISON: None. FINDINGS: Advanced spondylitic changes cervical spine. Disc space narrowing worse at C5-C6 and C6-C7. Anterior hypertrophic changes in the lower cervical spine. Normal prevertebral soft tissues. Normal C1-2 artic ulation. Normal dens. Slight anterolisthesis C7 on T1. Lung apices are well aerated. XR/XR cervical spine 3V* [id number] IMPRESSION: 1. Advanced spondylitic changes cervical spine. 2. Disc space narrowing worse at C5-C6 and C6-C7 with anterior hypertrophic ch anges. 3. Normal dens. 4. Normal prevertebral soft tissues.
--- NOTE | 2020-12-14 13:34 | XR_ITS ---
WS: [id number] Chest 2 views, 12/14/2020 Clinical Data: R05 - Cough Comparison: PA and lateral chest, 07/06/2020. Findings: No nodules, masses or effusions are seen. The heart is normal. The pulmonary vascularity is not increased. No pneumonia or pneumothorax is seen. The diaphragms are flattened. The AP diameter o f the chest is increased. The aortic arch and descending thoracic aorta show calcification and tortuo sity. There is a dextroscoliosis of the thoracic spine with osteoarthritis. XR/XR chest 2V* [id number] Impression: Osteoarthritis and hyperinflation.
== END 2020-12-14 12:51 | disposition home or self-care (01) ==
PROVIDERS: PCP Nurse Practitioner Family; Visit Provider Nurse Practitioner Family
DX: R05 Cough (principal); M54.2 Cervicalgia; R42 Dizziness and giddiness; I65.23 Occlusion and stenosis of bilateral carotid arteries; M19.90 Unspecified osteoarthritis, unspecified site
CPT/HCPCS: 71046; 72040; 93880

== ENCOUNTER 2021-10-05 11:06 | Outpatient (CLI) | payer OTHER, SELFPAY ==
--- NOTE | 2021-10-05 13:25 | USCV_ITS ---
Rich Quinonez Age: 76 Gender: M : 1945 Exam Date: 10/05/2021 13:28 Ordering Phys: Nancy Castaneda MD Technologist: Exam Location: [facility] [place] Indication: ? aaa HISTORY: Diameter (cm) AP x Transverse x Length Velocity (cm/s) Waveform Prox Aorta: 1.76 x 1.96 x 81.00 Mid Aorta: 1.70 x 2.49 x 69.30 Distal Aorta: 2.05 x 2.43 x 67.30 Right Iliac Prox: 0.77 x 0.94 x 120.60 Left Iliac Prox: 0.98 x 1.19 x 304.40 Stent Prox Landing x x Aneurysmal Sac Max x x Lt Lat Sac Dim Rt Lat Sac Dim Stent Dist Landing x x Right Iliac Stent x x Left Iliac Stent x x Right Renal Art Left Renal Art FINDINGS: Moderate diffuse plaques in the abdominal aorta. Of distal aorta appears to be ectatic CONCLUSIONS 1. Ectatic distal abdominal aorta with no definite aneurysm. 2. Moderate diffuse plaques in the abdominal aorta 3. Elevated velocity in the left proximal common iliac artery, suggestive of greater than 60% stenosis Dr Benson Pastor MD [facility] (Electronically Signed) Final Date: 05 October 2021 23:20 S
== END 2021-10-05 11:07 | disposition home or self-care (01) ==
LOC: RAD 11:13
PROVIDERS: PCP Nurse Practitioner Family; Visit Provider Family Medicine
DX: Z13.6 Encounter for screening for cardiovascular disorders (principal)
CPT/HCPCS: 76706

== ENCOUNTER → 2021-11-06 10:44 | Outpatient (BNVA) | payer MEDICARE, OTHER, SELFPAY | PROVIDERS: PCP Nurse Practitioner Family; Visit Provider Internal Medicine Cardiovascular Disease | DX: I77.9 Disorder of arteries and arterioles, unspecified (principal); R00.1 Bradycardia, unspecified; J44.9 Chronic obstructive pulmonary disease, unspecified; I77.811 Abdominal aortic ectasia; F17.210 Nicotine dependence, cigarettes, uncomplicated | CPT/HCPCS: 93005; 99214 ==

== ENCOUNTER 2022-01-15 13:12 | Outpatient (CLI) | payer MEDICARE, OTHER, SELFPAY ==
--- NOTE | 2022-01-15 13:30 | USCV_ITS ---
HerbertdignaRich Age: 76 Gender: M : 1945 Exam Date: 01/15/2022 13:16 Ordering Phys: Benson Pastor MD ([email or web address]) Technologist: CT Exam Location: [facility] [place] Indication: pvd Risk Factors: Previous Vascular Surgery: RIGHT LEFT BP: 108.0 / 64.00 BP: 100.0/ 68.00 0 0 Waveform Velocity (cm/s) Velocity (cm/s) Waveform 81.5 Iliac Prox 78.6 135.1 Iliac Mid 92.6 108.6 Iliac Distal 102.9 PLAN EXAMINER 95.1 77.2 131.2 SFA Prox 62.8 108.4 SFA Mid 101.4 67.8 SFA Dist 85.5 64.9 POP 58.9 45.6 STRAPPER 41.5 61.1 DPA 72.2 1.2 BRENDON 1.0 FINDINGS Minimal scattered plaques with intimal thickening in the iliac, femoral and popliteal arteries bilaterally. Resting BRENDON 1.2 on the right and 1.0 on the left Normal arterial Doppler flow velocities Biphasic waveforms bilaterally CONCLUSIONS 1. Normal resting ABIs bilaterally suggesting no significant obstructive arterial disease 2. Intimal thickening and scattered minimal plaques bilaterally. Dr Benson Pastor MD [facility] (Electronically Signed) Final Date: 16 January 2022 07:40 S
== END 2022-01-15 13:13 | disposition home or self-care (01) ==
LOC: RAD 13:12
PROVIDERS: PCP Nurse Practitioner Family; Visit Provider Internal Medicine Cardiovascular Disease
DX: I73.9 Peripheral vascular disease, unspecified (principal); I77.9 Disorder of arteries and arterioles, unspecified
CPT/HCPCS: 93925

== ENCOUNTER → 2022-05-30 13:39 | Outpatient (BNVA) | payer MEDICARE, OTHER, SELFPAY | PROVIDERS: PCP Nurse Practitioner Family; Visit Provider Internal Medicine Cardiovascular Disease | DX: I25.10 Atherosclerotic heart disease of native coronary artery without angina pectoris (principal); J44.9 Chronic obstructive pulmonary disease, unspecified; I77.811 Abdominal aortic ectasia; E78.5 Hyperlipidemia, unspecified; C34.32 Malignant neoplasm of lower lobe, left bronchus or lung; F17.200 Nicotine dependence, unspecified, uncomplicated; Z79.82 Long term (current) use of aspirin | CPT/HCPCS: 99214 ==